=== PATIENT | male | born 1945 | race Two or more races ===

== ENCOUNTER 2023-09-20 08:28 | Emergency (ER) | payer MEDICARE, MEDICAID ==
[~2023-09-20] VITALS: Ht 175.3 cm; Wt 100.0 kg
[~2023-09-20 08:28] MED LIST: AMLO10TA80 PO; ATOR40TA70 PO; B1/B1TAB5 MT; CHLO25TA2 PO; FERR-63 PO; GABA-529 PO; INSU100I28 SUBCUT; METF-416 PO; OLAN10TA72 PO; POTA-204 PO; SULF1TAB44 PO
[2023-09-20 08:32] VITALS: O2SAT 96
[2023-09-20 10:36] VITALS: BP 161/73; PULSE 68; RESP 22; TEMP 98
[2023-09-20] MEDS: IBUPROFEN 400MG TABLET PO ONE (10:36)
[2023-09-20] MEDS: LIDOCAINE 5% PATCH TOP STA (10:36)
[2023-09-20] MEDS: ACETAMINOPHEN 325MG TABLET PO ONE (10:36)
[2023-09-20] MEDS ORDERED: IBUP-2028 MT (11:57)
[2023-09-20] MEDS ORDERED: LIDO1ADH23 TP (11:57)
== END 2023-09-20 12:57 ==
LOC: ER 08:28
DX: M16.0 Bilateral primary osteoarthritis of hip (principal); E11.9 Type 2 diabetes mellitus without complications; E78.00 Pure hypercholesterolemia, unspecified; I48.91 Unspecified atrial fibrillation; Z79.899 Other long term (current) drug therapy; Z86.59 Personal history of other mental and behavioral disorders; W18.30XA Fall on same level, unspecified, initial encounter; Y93.01 Activity, walking, marching and hiking; Y92.89 Other specified places as the place of occurrence of the external cause; Y99.8 Other external cause status
CPT/HCPCS: 72100; 73502; 99284

== ENCOUNTER 2023-10-26 14:10 | Inpatient (IN) | payer MEDICARE, MEDICAID ==
[~2023-10-26] VITALS: Ht 170.2 cm; Wt 79.4 kg
[~2023-10-26 14:10] MED LIST changes: +IBUP-2028 MT; +LIDO1ADH23 TP
[2023-10-26 14:42] LABS: BASOPHILS % 0.9 % (0.0-2.0); DIFFERENTIAL COMMENT 0; EOSINOPHILS % 5.9 % (0.0-5.0); HEMATOCRIT. 45.3 % (42.0-52.0); HEMOGLOBIN. 14.3 g/dL (14.0-18.0); LYMPHOCYTES % 27.1 % (20.0-50.0); MEAN CORPUSCULAR HEMOGLOBIN 27.6 pg (28.0-32.0); MEAN CORPUSCULAR HGB CONC 31.6 g/dL (31.0-37.0); MEAN CORPUSCULAR VOLUME 87.5 fL (80.0-94.0); MEAN PLATELET VOLUME 11.4 fl (7.4-10.4); MONOCYTES % 7.9 % (2.0-8.0); NEUTROPHILS % 58.2 % (40.0-76.0); PLATELET 166 x1000/uL (130-400); RED BLOOD CELL COUNT 5.18 mill/uL (4.7-6.1); RED CELL DISTRIBUTION WIDTH 16.6 % (11.6-14.6); WHITE BLOOD COUNT 14.1 x1000/uL (4.5-11.0)
[2023-10-26 14:48] LABS: CHLORIDE 105 mEq/L (98-107); POTASSIUM 4.3 mEq/L (3.5-5.1); SODIUM 138 mEq/L (136-145)
[2023-10-26 14:49] LABS: CALCIUM 9.3 mg/dL (8.7-10.4); CARBON DIOXIDE 27 mEq/L (21-32)
[2023-10-26 14:54] LABS: CREATININE 1.1 mg/dL (0.6-1.3); UREA NITROGEN BLOOD 24 mg/dL (9-23)
[2023-10-26] MEDS: IOHEXOL-350 100 ML BOTTLE ONE (15:01)
[2023-10-26 15:04] LABS: PROTHROMBIN TIME 11.2 sec (9.6-11.0)
[2023-10-26] MEDS: ASPIRIN 325MG EC TABLET PO ONE (15:19)
[2023-10-26 15:21] LABS: ETHANOL BLOOD < 10 mg/dL (<10); GLUCOSE 411 mg/dL (70-105)
[2023-10-26] MEDS: INSULIN REGULAR (HUMULIN R) 1000UNITS/10ML VIAL IV STA (15:47)
[2023-10-26] MEDS: SODIUM CHLORIDE 0.9% 1,000 ML IV ONE (15:47)
[2023-10-26] MEDS ORDERED: ACETAMINOPHEN 325MG TABLET PO PRN (20:30)
[2023-10-26] MEDS ORDERED: ONDANSETRON HCL 4MG/2ML INJ IV PRN (20:30)
[2023-10-26] MEDS ORDERED: DOCUSATE SODIUM 100MG CAPSULE PO PRN (20:30)
[2023-10-26] MEDS ORDERED: MAGNESIUM/ALUMINUM HYDROXIDE/SIMETHICONE 30ML UDC PO PRN (20:30)
[2023-10-26] MEDS ORDERED: DEXTROSE 50% WATER 50ML SYRINGE IV PRN ×2 (20:30)
[2023-10-26] MEDS ORDERED: HYDROCODONE/ACETAMINOPHEN 5/325MG TABLET PO PRN (20:30)
[2023-10-26] MEDS: BLOOD SUGAR DIAGNOSTIC STRIP TEST SCH (21:32)
[2023-10-26] MEDS: INSULIN LISPRO 100 UNITS/ML SUBCUT SCH (21:46)
[2023-10-26] MEDS: ENOXAPARIN 40MG/0.4ML SYR SUBCUT SCH (22:31)
[2023-10-26 23:18] VITALS: BP 186/83; PULSE 59; RESP 18; TEMP 36.44736; TEMP 36.4736; O2SAT 96
[2023-10-26] MEDS: CLONIDINE 0.1MG TABLET PO PRN (23:35)
[2023-10-27 05:21] VITALS: BP 132/78; PULSE 84; RESP 12; TEMP 36.83628; O2SAT 99
[2023-10-27 05:53] LABS: CARBON DIOXIDE 28 mEq/L (21-32); CHLORIDE 107 mEq/L (98-107); POTASSIUM 4.2 mEq/L (3.5-5.1); SODIUM 140 mEq/L (136-145)
[2023-10-27 05:54] LABS: CALCIUM 9.2 mg/dL (8.7-10.4)
[2023-10-27 05:55] LABS: BASOPHILS % 1.3 % (0.0-2.0); EOSINOPHILS % 10.5 % (0.0-5.0); HEMATOCRIT. 44.2 % (42.0-52.0); HEMOGLOBIN. 14.1 g/dL (14.0-18.0); LYMPHOCYTES % 32.3 % (20.0-50.0); MEAN CORPUSCULAR HGB CONC 31.8 g/dL (31.0-37.0); MEAN CORPUSCULAR VOLUME 87.9 fL (80.0-94.0); MEAN PLATELET VOLUME 11.7 fl (7.4-10.4); MONOCYTES % 8.8 % (2.0-8.0); NEUTROPHILS % 47.1 % (40.0-76.0); PLATELET 148 x1000/uL (130-400); RED BLOOD CELL COUNT 5.03 mill/uL (4.7-6.1); RED CELL DISTRIBUTION WIDTH 17.3 % (11.6-14.6); WHITE BLOOD COUNT 10.9 x1000/uL (4.5-11.0)
[2023-10-27 05:58] LABS: CREATININE 0.9 mg/dL (0.6-1.3)
[2023-10-27 05:59] LABS: GLUCOSE 342 mg/dL (70-105); TRIGLYCERIDE 117 mg/dL (0-150); UREA NITROGEN BLOOD 18 mg/dL (9-23)
[2023-10-27] MEDS: PANTOPRAZOLE 40MG DR TABLET PO SCH (05:59)
[2023-10-27 06:00] LABS: ALANINE AMINOTRANSFERASE 39 IU/L (10-49); ALBUMIN 3.7 g/dL (3.2-4.8); LDL CHOLESTEROL 63 mg/dL (5-100)
[2023-10-27 06:01] LABS: ASPARTATE AMINOTRANSFERASE 38 IU/L (<34); BILIRUBIN DIRECT 0.2 mg/dL (<=3.0); BILIRUBIN TOTAL 0.7 mg/dL (0.1-1.0); CHOLESTEROL 106 mg/dL (<200); HDL CHOLESTEROL 31 mg/dL (>55); PHOSPHORUS 2.8 mg/dL (2.5-4.9)
[2023-10-27 06:02] LABS: T4 FREE 0.85 ng/dL (0.89-1.76); THYROID STIMULATING HORMONE 2.24 uIU/mL (0.55-4.78)
[2023-10-27 06:21] LABS: DIFFERENTIAL COMMENT 1
[2023-10-27] MEDS ORDERED: OMEPRAZOLE 20MG CAPSULE EXTENDED RELEASE PO SCH (06:45)
[2023-10-27] MEDS ORDERED: ASPIRIN 81MG EC TABLET PO SCH (09:00)
[2023-10-27] MEDS ORDERED: NALOXONE HCL 0.4MG/ML VIAL IV PRN (10:30)
[2023-10-27] MEDS ORDERED: HYDRALAZINE HCL 25MG TABLET PO PRN (11:00)
[2023-10-27 11:02] VITALS: BP 145/86; PULSE 62; RESP 18; TEMP 36.6404
[2023-10-27 12:00] VITALS: BP 136/86; PULSE 76; RESP 18; TEMP 36.55848; O2SAT 96
[2023-10-27] MEDS: ASPIRIN 81MG EC TABLET PO SCH (12:19)
[2023-10-27 16:00] VITALS: BP 172/85; PULSE 61; RESP 18; TEMP 36.55848; O2SAT 98
[2023-10-27 20:00] VITALS: BP 158/75; PULSE 53; RESP 19; TEMP 35.89176; O2SAT 97
[2023-10-27] MEDS: ATORVASTATIN CALCIUM 40MG TABLET PO SCH (21:00)
[2023-10-28] VITALS: BP 153/71; PULSE 51; RESP 20; TEMP 36.78072; O2SAT 97
[2023-10-28 04:00] VITALS: BP 148/76; PULSE 61; RESP 18; TEMP 36.6696; O2SAT 97
[2023-10-28 08:00] VITALS: BP 175/75; PULSE 55; RESP 20; TEMP 36.3918; O2SAT 98
[2023-10-28 08:45] LABS: BASOPHILS % 1.5 % (0.0-2.0); EOSINOPHILS % 8.8 % (0.0-5.0); HEMATOCRIT. 46.2 % (42.0-52.0); HEMOGLOBIN. 14.7 g/dL (14.0-18.0); LYMPHOCYTES % 31.7 % (20.0-50.0); MEAN CORPUSCULAR HEMOGLOBIN 27.6 pg (28.0-32.0); MEAN CORPUSCULAR HGB CONC 31.7 g/dL (31.0-37.0); MEAN CORPUSCULAR VOLUME 87.1 fL (80.0-94.0); MONOCYTES % 8.3 % (2.0-8.0); NEUTROPHILS % 49.7 % (40.0-76.0); RED BLOOD CELL COUNT 5.31 mill/uL (4.7-6.1); RED CELL DISTRIBUTION WIDTH 17.1 % (11.6-14.6); WHITE BLOOD COUNT 12.7 x1000/uL (4.5-11.0)
[2023-10-28 08:54] LABS: CHLORIDE 104 mEq/L (98-107); POTASSIUM 3.7 mEq/L (3.5-5.1); SODIUM 137 mEq/L (136-145)
[2023-10-28 08:55] LABS: CALCIUM 9.6 mg/dL (8.7-10.4); CARBON DIOXIDE 30 mEq/L (21-32)
[2023-10-28 08:58] LABS: DIFFERENTIAL COMMENT 1
[2023-10-28 09:00] LABS: CREATININE 0.8 mg/dL (0.6-1.3); GLUCOSE 254 mg/dL (70-105); TRIGLYCERIDE 120 mg/dL (0-150); UREA NITROGEN BLOOD 14 mg/dL (9-23)
[2023-10-28 09:01] LABS: LDL CHOLESTEROL 63 mg/dL (5-100)
[2023-10-28 09:02] LABS: CHOLESTEROL 108 mg/dL (<200); HDL CHOLESTEROL 30 mg/dL (>55)
[2023-10-28] MEDS: CLOPIDOGREL 75MG TABLET PO SCH (09:22)
[2023-10-28 10:48] LABS: MEAN PLATELET VOLUME 11.6 fl (7.4-10.4); PLATELET 167 x1000/uL (130-400)
[2023-10-28 12:00] VITALS: BP 175/75; PULSE 55; RESP 20; TEMP 36.3918; O2SAT 98
[2023-10-28] MEDS: MAGNESIUM 2 G PREMIX 50 ML IV NR (12:40)
[2023-10-28 16:00] VITALS: BP 144/68; PULSE 68; RESP 18; TEMP 36.6696; O2SAT 99
[2023-10-28] MEDS: APIXABAN 5 MG TABLET PO SCH (17:30)
[2023-10-28 20:00] VITALS: PULSE 53; RESP 19; TEMP 36.61404; O2SAT 96
[2023-10-29 04:00] VITALS: BP 148/77; PULSE 53; RESP 20; TEMP 36.3918; O2SAT 97
[2023-10-29 07:17] LABS: CHLORIDE 103 mEq/L (98-107); POTASSIUM 3.9 mEq/L (3.5-5.1); SODIUM 140 mEq/L (136-145)
[2023-10-29 07:18] LABS: CALCIUM 9.3 mg/dL (8.7-10.4); CARBON DIOXIDE 29 mEq/L (21-32)
[2023-10-29 07:23] LABS: CREATININE 0.8 mg/dL (0.6-1.3); GLUCOSE 141 mg/dL (70-105); UREA NITROGEN BLOOD 16 mg/dL (9-23)
[2023-10-29 08:00] VITALS: BP 139/64; PULSE 69; RESP 18; TEMP 36.61404; O2SAT 98
[2023-10-29] MEDS: FAMOTIDINE 20MG TABLET PO SCH (08:09)
[2023-10-29 08:18] LABS: BASOPHILS % 1.5 % (0.0-2.0); DIFFERENTIAL COMMENT 0; EOSINOPHILS % 6.9 % (0.0-5.0); HEMATOCRIT. 44.5 % (42.0-52.0); HEMOGLOBIN. 14.3 g/dL (14.0-18.0); LYMPHOCYTES % 29.8 % (20.0-50.0); MEAN CORPUSCULAR HGB CONC 32.3 g/dL (31.0-37.0); MEAN CORPUSCULAR VOLUME 86.8 fL (80.0-94.0); MEAN PLATELET VOLUME 12.7 fl (7.4-10.4); MONOCYTES % 10.2 % (2.0-8.0); NEUTROPHILS % 51.6 % (40.0-76.0); PLATELET 154 x1000/uL (130-400); RED BLOOD CELL COUNT 5.12 mill/uL (4.7-6.1); RED CELL DISTRIBUTION WIDTH 16.7 % (11.6-14.6); WHITE BLOOD COUNT 13.3 x1000/uL (4.5-11.0)
[2023-10-29 12:00] VITALS: BP 143/71; PULSE 55; RESP 18; TEMP 36.72516; O2SAT 95
[2023-10-29 16:00] VITALS: BP 131/77; PULSE 60; RESP 18; TEMP 37.11408; O2SAT 99
[2023-10-29 20:00] VITALS: BP 136/75; PULSE 60; RESP 20; TEMP 36.6696; O2SAT 95
[2023-10-30] VITALS: BP 133/65; PULSE 58; RESP 20; TEMP 36.6696; O2SAT 95
[2023-10-30 04:00] VITALS: BP 132/65; PULSE 61; RESP 20; TEMP 36.6696; O2SAT 95
[2023-10-30 08:00] VITALS: BP 162/92; PULSE 75; RESP 18; TEMP 36.50292; O2SAT 95
[2023-10-30 09:58] VITALS: BP 162/91; PULSE 75; RESP 20; TEMP 36.50292; O2SAT 93
[2023-10-30 11:46] VITALS: BP 141/87; PULSE 72; TEMP 97.9; O2SAT 99
[2023-10-30] MEDS: HYDRALAZINE HCL 25MG TABLET PO NR (11:55)
[2023-10-30] MEDS ORDERED: AMLODIPINE 5MG TABLET PO SCH (21:00)
== END 2023-10-30 12:15 | DRG 64 ==
LOC: ER 14:10 → EDBEDREQ 15:07 → 5WST 19:26 → EDBEDREQ 19:29 → 8WST 10-27 10:24
PROVIDERS: ADMIT Family Medicine Adult Medicine; ATTEND Family Medicine Adult Medicine
DX: I63.531 Cerebral infarction due to unspecified occlusion or stenosis of right posterior cerebral artery (principal); G82.50 Quadriplegia, unspecified; I48.20 Chronic atrial fibrillation, unspecified; G40.909 Epilepsy, unspecified, not intractable, without status epilepticus; E83.42 Hypomagnesemia; D72.10 Eosinophilia, unspecified; D64.9 Anemia, unspecified; E11.65 Type 2 diabetes mellitus with hyperglycemia; E11.42 Type 2 diabetes mellitus with diabetic polyneuropathy; F20.9 Schizophrenia, unspecified; E78.00 Pure hypercholesterolemia, unspecified; F17.200 Nicotine dependence, unspecified, uncomplicated; R47.01 Aphasia; Z79.4 Long term (current) use of insulin
CPT/HCPCS: 36415; 70496; 70498; 70551; 71045; 80048; 80061; 80076; 80320; 82962; 83036; 83735; 84100; 84439; 84443; 85025; 92523; 92610; 93005; 93306; 93970; 97162; 97166; 97168; 99291; J1650; J1815; J3475; J7030; Q9967; G0480

== ENCOUNTER 2024-05-11 19:42 | Emergency (ER) | payer MEDICARE, MEDICAID ==
[~2024-05-11] VITALS: Ht 170.2 cm; Wt 75.0 kg
[2024-05-11 19:50] VITALS: O2SAT 96
[2024-05-11] MEDS: SODIUM CHLORIDE 0.9% 1,000 ML IV ONE (20:30)
[2024-05-11 20:53] LABS: EOSINOPHILS % 10.7 % (0.0-5.0); HEMATOCRIT. 42.1 % (42.0-52.0); HEMOGLOBIN. 13.8 g/dL (14.0-18.0); LYMPHOCYTES % 34.1 % (20.0-50.0); MEAN CORPUSCULAR HGB CONC 32.9 g/dL (31.0-37.0); NEUTROPHILS % 43.2 % (40.0-76.0); PLATELET 181 x1000/uL (130-400); RED BLOOD CELL COUNT 4.78 mill/uL (4.7-6.1); RED CELL DISTRIBUTION WIDTH 14.3 % (11.6-14.6)
[2024-05-11 20:55] LABS: DIFFERENTIAL COMMENT 1
[2024-05-11 21:00] LABS: CARBON DIOXIDE 30 mEq/L (21-32); CHLORIDE 105 mEq/L (98-107); SODIUM 143 mEq/L (136-145)
[2024-05-11 21:01] LABS: CALCIUM 9.8 mg/dL (8.7-10.4)
[2024-05-11 21:05] LABS: CREATININE 0.9 mg/dL (0.6-1.3)
[2024-05-11 21:06] LABS: GLUCOSE 90 mg/dL (70-105); TROPONIN I HIGH SENSITIVITY 18 ng/L (3.0-53); UREA NITROGEN BLOOD 18 mg/dL (9-23)
[2024-05-11 21:07] LABS: ALANINE AMINOTRANSFERASE 22 IU/L (10-49); ALBUMIN 4.1 g/dL (3.2-4.8); ASPARTATE AMINOTRANSFERASE 28 IU/L (<34)
[2024-05-11 21:08] LABS: BILIRUBIN DIRECT 0.1 mg/dL (<=3.0); BILIRUBIN TOTAL 0.3 mg/dL (0.1-1.0); PROTEIN TOTAL 6.4 g/dL (6.0-8.3)
[2024-05-11 22:13] LABS: PARTIAL THROMBOPLASTIN TIME 25.2 sec (23.4-31.0); PROTHROMBIN TIME 10.9 sec (9.6-11.0)
[2024-05-12 01:18] VITALS: BP 167/74; PULSE 58; RESP 18; TEMP 36.7; O2SAT 95
== END 2024-05-12 02:21 ==
LOC: ER 19:42
DX: T14.8XXA Other injury of unspecified body region, initial encounter (principal); E11.9 Type 2 diabetes mellitus without complications; E78.00 Pure hypercholesterolemia, unspecified; F20.9 Schizophrenia, unspecified; G40.909 Epilepsy, unspecified, not intractable, without status epilepticus; I48.91 Unspecified atrial fibrillation; I25.2 Old myocardial infarction; Z79.01 Long term (current) use of anticoagulants; Z79.899 Other long term (current) drug therapy; Z79.84 Long term (current) use of oral hypoglycemic drugs; Z86.73 Personal history of transient ischemic attack (TIA), and cerebral infarction without residual deficits; X58.XXXA Exposure to other specified factors, initial encounter; Y93.89 Activity, other specified; Y92.89 Other specified places as the place of occurrence of the external cause; Y99.8 Other external cause status
CPT/HCPCS: 99285; 71045; 80076; 80048; 83880; 85025; 85610; 85730; 84484; 36415; 93005; J7030

== ENCOUNTER 2025-02-06 16:31 | Inpatient (IN) | payer MEDICARE, MEDICAID ==
[~2025-02-06] VITALS: Ht 182.9 cm; Wt 64.0 kg
[~2025-02-06 16:31] MED LIST changes: +ASPI-1160 PO; -ATOR40TA70 PO; +FAMO20TA8 PO; +HYDR50TA39 PO; +INSLIS SUBCUT; +INSU100I28 SQ; -INSU100I28 SUBCUT; -LIDO1ADH23 TP; +LIP40 PO; +NICO-789 TD; -OLAN10TA72 PO; -SULF1TAB44 PO
[2025-02-06 16:34] VITALS: O2SAT 97
[2025-02-06] MEDS: HYDRALAZINE 20MG/ML VIAL IV ONE (18:01)
[2025-02-06 18:40] LABS: BASOPHILS % 0.6 % (0.0-2.0); EOSINOPHILS % 9.9 % (0.0-5.0); HEMATOCRIT. 41.3 % (42.0-52.0); HEMOGLOBIN. 13.4 g/dL (14.0-18.0); LYMPHOCYTES % 32.3 % (20.0-50.0); MONOCYTES % 9.1 % (2.0-8.0); NEUTROPHILS % 48.1 % (40.0-76.0); RED BLOOD CELL COUNT 4.78 mill/uL (4.7-6.1); RED CELL DISTRIBUTION WIDTH 16.1 % (11.6-14.6)
[2025-02-06 18:57] LABS: CREATININE 1.0 mg/dL (0.6-1.3)
[2025-02-06 18:58] LABS: UREA NITROGEN BLOOD 17 mg/dL (9-23)
[2025-02-06 18:59] LABS: ASPARTATE AMINOTRANSFERASE 25 IU/L (<34); TROPONIN I HIGH SENSITIVITY 30 ng/L (3.0-53)
[2025-02-06 19:00] LABS: BILIRUBIN DIRECT 0.1 mg/dL (<=3.0); BILIRUBIN TOTAL 0.3 mg/dL (0.1-1.0); PROTEIN TOTAL 6.4 g/dL (6.0-8.3)
[2025-02-06] MEDS: HYDROCODONE/ACETAMINOPHEN 5/325MG TABLET PO ONE (19:13)
[2025-02-06] MEDS: LABETALOL 5MG/ML 4ML INJ IV ONE (21:10)
[2025-02-06 21:32] LABS: MEAN PLATELET VOLUME 11.3 fl (7.4-10.4); PLATELET 166 x1000/uL (130-400)
[2025-02-07] MEDS: LABETALOL 5MG/ML 4ML INJ IV ONE (00:57)
[2025-02-07] MEDS: HYDRALAZINE 20MG/ML VIAL IV ONE (00:57)
[2025-02-07] MEDS ORDERED: GUAIFENESIN 200MG/10ML SUGAR FREE UDC PO PRN (01:30)
[2025-02-07] MEDS ORDERED: ASPIRIN 81MG TABLET PO NR (01:30)
[2025-02-07] MEDS ORDERED: DOCUSATE SODIUM 100MG CAPSULE PO PRN (01:30)
[2025-02-07] MEDS ORDERED: MAGNESIUM/ALUMINUM HYDROXIDE/SIMETHICONE 30ML UDC PO PRN (01:30)
[2025-02-07] MEDS ORDERED: DEXTROSE 50% WATER 50ML SYRINGE IV PRN ×2 (01:30→10:30)
[2025-02-07] MEDS ORDERED: IPRATROPIUM/ALBUTEROL 0.5-3(2.5)MG/3ML NEB HHN PRN (01:30)
[2025-02-07] MEDS ORDERED: ONDANSETRON HCL 4MG/2ML INJ IV PRN (01:30)
[2025-02-07 02:14] VITALS: BP 165/80; PULSE 62; RESP 18; TEMP 36.696
[2025-02-07] MEDS: CLONIDINE 0.1MG TABLET PO PRN (03:03)
[2025-02-07] MEDS: HYDROCODONE/ACETAMINOPHEN 5/325MG TABLET PO NR (03:03)
[2025-02-07] MEDS: DEXT 5%/0.9% NACL 1,000 ML IV SCH (03:15)
[2025-02-07] MEDS ORDERED: ENOXAPARIN 80MG/0.8ML SYR SUBCUT SCH (03:30)
[2025-02-07] MEDS: GABAPENTIN 100MG CAPSULE PO SCH (05:08)
[2025-02-07] MEDS: CLONIDINE 0.1MG TABLET PO SCH (05:09)
[2025-02-07] MEDS ORDERED: GABAPENTIN 100MG CAPSULE PO SCH (06:00)
[2025-02-07] MEDS ORDERED: HYDRALAZINE HCL 50MG TABLET PO SCH (06:00)
[2025-02-07] MEDS ORDERED: INSULIN LISPRO 100 UNITS/ML SUBCUT SCH (07:20)
[2025-02-07] MEDS: INSULIN LISPRO 100 UNITS/ML SUBCUT SCH ×3 (07:20→12:50)
[2025-02-07] MEDS: BLOOD SUGAR DIAGNOSTIC STRIP TEST SCH ×2 (07:39→12:20)
[2025-02-07 08:00] VITALS: BP 175/79; PULSE 58; RESP 13; TEMP 36.6; O2SAT 94
[2025-02-07] MEDS ORDERED: AMLODIPINE 10MG TABLET PO SCH (09:00)
[2025-02-07] MEDS ORDERED: APIXABAN 5 MG TABLET PO SCH (09:00)
[2025-02-07] MEDS ORDERED: NICOTINE 21MG PATCH TD SCH (09:00)
[2025-02-07] MEDS ORDERED: CHLORTHALIDONE 25MG TABLET PO SCH (09:00)
[2025-02-07] MEDS: APIXABAN 5 MG TABLET PO SCH (09:30)
[2025-02-07] MEDS: AMLODIPINE 10MG TABLET PO SCH (09:31)
[2025-02-07] MEDS: FERROUS SULFATE 325MG TABLET PO SCH (09:32)
[2025-02-07 16:00] VITALS: BP 168/81; PULSE 54; RESP 14; TEMP 36.5; O2SAT 95
[2025-02-07] MEDS: HYDROCODONE/ACETAMINOPHEN 5/325MG TABLET PO PRN (16:21)
[2025-02-07] MEDS: HYDRALAZINE HCL 50MG TABLET PO PRN (16:25)
[2025-02-07 17:16] LABS: BASOPHILS % 1.2 % (0.0-2.0); EOSINOPHILS % 7.7 % (0.0-5.0); HEMATOCRIT. 45.6 % (42.0-52.0); HEMOGLOBIN. 14.6 g/dL (14.0-18.0); LYMPHOCYTES % 27.0 % (20.0-50.0); MEAN PLATELET VOLUME 12.7 fl (7.4-10.4); MONOCYTES % 8.2 % (2.0-8.0); NEUTROPHILS % 55.9 % (40.0-76.0); PLATELET 188 x1000/uL (130-400); RED BLOOD CELL COUNT 5.26 mill/uL (4.7-6.1); RED CELL DISTRIBUTION WIDTH 16.4 % (11.6-14.6)
[2025-02-07 17:28] LABS: INR 1.1
[2025-02-07] MEDS: LOSARTAN 100 MG TABLET PO SCH (17:29)
[2025-02-07 17:31] LABS: CREATININE 0.9 mg/dL (0.6-1.3)
[2025-02-07 17:32] LABS: LDL CHOLESTEROL 117 mg/dL (5-100); TRIGLYCERIDE 126 mg/dL (0-150); UREA NITROGEN BLOOD 8 mg/dL (9-23)
[2025-02-07 20:00] VITALS: BP 171/72; PULSE 50; RESP 18; TEMP 36.3; O2SAT 98
[2025-02-07] MEDS ORDERED: ATORVASTATIN CALCIUM 40MG TABLET PO SCH (21:00)
[2025-02-07] MEDS ORDERED: INSULIN GLARGINE 100 UNITS/ML SUBCUT SCH ×2 (22:00)
[2025-02-07] MEDS: ATORVASTATIN CALCIUM 40MG TABLET PO SCH (22:04)
[2025-02-07] MEDS: FAMOTIDINE 20MG TABLET PO SCH (22:07)
[2025-02-08] VITALS: BP 122/59; PULSE 50; RESP 18; TEMP 36.4; O2SAT 98
[2025-02-08 04:00] VITALS: BP 144/61; PULSE 50; RESP 18; TEMP 36.3; O2SAT 98
[2025-02-08 08:00] VITALS: BP 162/88; PULSE 55; RESP 18; TEMP 36.6; O2SAT 96
[2025-02-08 08:27] LABS: CREATININE 0.8 mg/dL (0.6-1.3); UREA NITROGEN BLOOD 14 mg/dL (9-23)
[2025-02-08 08:45] LABS: BASOPHILS % 1.2 % (0.0-2.0); EOSINOPHILS % 9.9 % (0.0-5.0); HEMATOCRIT. 43.3 % (42.0-52.0); HEMOGLOBIN. 13.6 g/dL (14.0-18.0); LYMPHOCYTES % 27.5 % (20.0-50.0); MONOCYTES % 10.7 % (2.0-8.0); NEUTROPHILS % 50.7 % (40.0-76.0); RED BLOOD CELL COUNT 4.96 mill/uL (4.7-6.1); RED CELL DISTRIBUTION WIDTH 16.0 % (11.6-14.6)
[2025-02-08 11:38] LABS: PLATELET 198 x1000/uL (130-400)
[2025-02-08 12:00] VITALS: BP 140/66; PULSE 47; RESP 13; TEMP 36.3; O2SAT 94
[2025-02-08 16:00] VITALS: BP 141/87; PULSE 52; RESP 15; TEMP 36.4; O2SAT 95
[2025-02-08 20:00] VITALS: BP 163/72; PULSE 52; RESP 19; TEMP 36.2; O2SAT 98
[2025-02-08] MEDS: ATORVASTATIN CALCIUM 40MG TABLET PO SCH (21:57)
[2025-02-09] VITALS: BP 181/76; PULSE 48; RESP 19; TEMP 36.4; O2SAT 98
[2025-02-09 07:42] LABS: CREATININE 0.8 mg/dL (0.6-1.3); TRIGLYCERIDE 97 mg/dL (0-150); UREA NITROGEN BLOOD 9 mg/dL (9-23)
[2025-02-09 07:43] LABS: LDL CHOLESTEROL 70 mg/dL (5-100)
[2025-02-09 07:47] LABS: BASOPHILS % 1.0 % (0.0-2.0); EOSINOPHILS % 11.4 % (0.0-5.0); HEMATOCRIT. 44.3 % (42.0-52.0); HEMOGLOBIN. 14.1 g/dL (14.0-18.0); LYMPHOCYTES % 31.1 % (20.0-50.0); MONOCYTES % 10.7 % (2.0-8.0); NEUTROPHILS % 45.8 % (40.0-76.0); RED BLOOD CELL COUNT 5.10 mill/uL (4.7-6.1); RED CELL DISTRIBUTION WIDTH 16.1 % (11.6-14.6)
[2025-02-09 08:00] VITALS: BP 205/81; PULSE 54; RESP 18; TEMP 36.5; O2SAT 95
[2025-02-09 10:14] LABS: PLATELET 162 x1000/uL (130-400)
[2025-02-09 12:00] VITALS: BP 170/71; PULSE 57; RESP 18; TEMP 36.3; O2SAT 99
[2025-02-09] MEDS: HYDRALAZINE 20MG/ML VIAL IV PRN (12:26)
[2025-02-09] MEDS ORDERED: NALOXONE HCL 0.4MG/ML VIAL IV PRN (15:00)
[2025-02-09 16:00] VITALS: BP 183/74; PULSE 62; TEMP 36.3; O2SAT 95
[2025-02-09 20:00] VITALS: BP 113/78; PULSE 57; RESP 19; TEMP 36.5; O2SAT 96
[2025-02-10 04:00] VITALS: BP 195/83; PULSE 65; RESP 19; TEMP 36.6; O2SAT 97
[2025-02-10 05:05] VITALS: BP 153/76
[2025-02-10 08:00] VITALS: BP 155/59; PULSE 78; RESP 18; TEMP 36.6; O2SAT 97
[2025-02-10] MEDS: AMLODIPINE 5MG TABLET PO SCH (09:12)
[2025-02-10 12:00] VITALS: BP 152/60; PULSE 73; RESP 18; TEMP 36.7; O2SAT 98
[2025-02-10 16:00] VITALS: BP 157/56; PULSE 76; RESP 18; TEMP 36.6; O2SAT 98
[2025-02-10 20:24] VITALS: BP 200/71; PULSE 60; RESP 21; TEMP 36.5; O2SAT 98
[2025-02-11] VITALS: BP 135/82; PULSE 61; RESP 18; TEMP 36.4; O2SAT 97
[2025-02-11 04:00] VITALS: BP 195/79; PULSE 61; RESP 18; TEMP 36.6; O2SAT 98
[2025-02-11 08:29] VITALS: BP 181/72; PULSE 75; RESP 16; TEMP 36.2; O2SAT 97
[2025-02-11] MEDS: CLONIDINE HCL 0.1MG/24HR PATCH TD SCH (08:33)
[2025-02-11] MEDS: HYDROMORPHONE HCL/PF 2MG/ML INJ IV PRN (08:44)
[2025-02-11 12:00] VITALS: BP 187/81; PULSE 78; RESP 17; TEMP 36.6; O2SAT 96
[2025-02-11 13:26] LABS: BASOPHILS % 1.3 % (0.0-2.0); EOSINOPHILS % 1.5 % (0.0-5.0); HEMATOCRIT. 45.8 % (42.0-52.0); HEMOGLOBIN. 14.7 g/dL (14.0-18.0); LYMPHOCYTES % 16.6 % (20.0-50.0); MONOCYTES % 8.7 % (2.0-8.0); NEUTROPHILS % 71.9 % (40.0-76.0); RED BLOOD CELL COUNT 5.31 mill/uL (4.7-6.1); RED CELL DISTRIBUTION WIDTH 16.4 % (11.6-14.6)
[2025-02-11 13:37] LABS: CREATININE 0.8 mg/dL (0.6-1.3); UREA NITROGEN BLOOD 8 mg/dL (9-23)
[2025-02-11 15:30] LABS: MEAN PLATELET VOLUME 13.6 fl (7.4-10.4); PLATELET 153 x1000/uL (130-400)
[2025-02-11 16:00] VITALS: BP 181/72; PULSE 75; RESP 16; TEMP 36.2; O2SAT 97
[2025-02-12] VITALS: BP 172/70; PULSE 17; RESP 17; TEMP 36.7; O2SAT 60
[2025-02-12 04:00] VITALS: BP 135/69; PULSE 68; RESP 18; TEMP 36.7; O2SAT 96
[2025-02-12 08:00] VITALS: BP 147/69; PULSE 70; RESP 19; TEMP 36.2; O2SAT 97
[2025-02-12 12:00] VITALS: PULSE 64; RESP 18; TEMP 36.2; O2SAT 98
[2025-02-12] MEDS: MAGNESIUM 1 G PREMIX 100 ML IV ONE (15:06)
[2025-02-12 16:00] VITALS: BP 147/69; PULSE 70; RESP 19; TEMP 36.2; O2SAT 97
[2025-02-12 20:00] VITALS: BP 176/78; PULSE 69; RESP 19; TEMP 36.5; O2SAT 97
[2025-02-13] VITALS (7 sets, daily range): BP systolic 121–199; BP diastolic 64–84; PULSE 59–86; RESP 16–19; TEMP 35.9–36.9; O2SAT 91–98
[2025-02-13] MEDS: POTASSIUM CHLORIDE 20MEQ/PACKET PO NR (10:15)
[2025-02-13] MEDS: MAGNESIUM 1 G PREMIX 100 ML IV NR (13:24)
[2025-02-14] VITALS (8 sets, daily range): BP systolic 121–199; BP diastolic 67–87; PULSE 61–66; RESP 18–19; TEMP 36.1–37.2; O2SAT 96–100
[2025-02-14] MEDS: CLONIDINE 0.1MG TABLET PO SCH (17:38)
[2025-02-14 17:42] LABS: HEMATOCRIT. 44.7 % (42.0-52.0); HEMATOCRIT. 45.1 % (42.0-52.0); HEMOGLOBIN. 14.5 g/dL (14.0-18.0); HEMOGLOBIN. 14.6 g/dL (14.0-18.0); MEAN PLATELET VOLUME 13.4 fl (7.4-10.4); MEAN PLATELET VOLUME 14.1 fl (7.4-10.4); PLATELET 153 x1000/uL (130-400); PLATELET 154 x1000/uL (130-400); RED BLOOD CELL COUNT 5.21 mill/uL (4.7-6.1); RED BLOOD CELL COUNT 5.28 mill/uL (4.7-6.1); RED CELL DISTRIBUTION WIDTH 16.7 % (11.6-14.6); RED CELL DISTRIBUTION WIDTH 16.8 % (11.6-14.6)
[2025-02-14 17:57] LABS: INR 1.0
[2025-02-14 18:00] LABS: CREATININE 0.8 mg/dL (0.6-1.3)
[2025-02-14 18:01] LABS: UREA NITROGEN BLOOD 18 mg/dL (9-23)
[2025-02-14 18:03] LABS: CREATININE 0.8 mg/dL (0.6-1.3); PHOSPHORUS 2.0 mg/dL (2.5-4.9); UREA NITROGEN BLOOD 17 mg/dL (9-23)
[2025-02-14 18:16] LABS: LYMPHOCYTES % MANUAL 28.0 % (20.0-50.0); MONOCYTES % MANUAL 14.0 % (2.0-8.0); NEUTROPHILS % MANUAL 58.0 % (45.0-75.0); PLATELET ESTIMATE NORMAL
[2025-02-14 18:17] LABS: EOSINOPHILS % MANUAL 2.0 % (0.0-5.0); LYMPHOCYTES % MANUAL 24.0 % (20.0-50.0); MONOCYTES % MANUAL 14.0 % (2.0-8.0); NEUTROPHILS % MANUAL 60.0 % (45.0-75.0); PLATELET ESTIMATE NORMAL
[2025-02-15] VITALS (7 sets, daily range): BP systolic 155–192; BP diastolic 68–95; PULSE 53–70; RESP 18–19; TEMP 36.2–36.7; O2SAT 97–100
[2025-02-15] MEDS: POTASSIUM CHLORIDE 20MEQ TABLET SR PO NR (01:30)
[2025-02-15] MEDS: DEXTROSE 5% WATER 1,000 ML IV SCH (08:30)
[2025-02-15] MEDS ORDERED: AMLODIPINE 10MG TABLET PO SCH (09:00)
[2025-02-15] MEDS: HYDRALAZINE HCL 50MG TABLET PO SCH ×2 (10:29→13:00)
[2025-02-15] MEDS: POTASSIUM PHOSPHATE 15 MMOL in DEXT 5% WATER 245 ML IV NR (10:54)
[2025-02-15] MEDS: POTASSIUM CHLORIDE 20MEQ/PACKET PO NR ×2 (11:00→16:00)
[2025-02-15 16:05] LABS: CREATININE 0.8 mg/dL (0.6-1.3); UREA NITROGEN BLOOD 7 mg/dL (9-23)
[2025-02-15] MEDS ORDERED: HALOPERIDOL 0.5MG TABLET PO NR (18:50)
[2025-02-16] VITALS (7 sets, daily range): BP systolic 144–180; BP diastolic 58–114; PULSE 52–108; RESP 15–19; TEMP 35.7–36.8; O2SAT 95–96
[2025-02-16 08:37] LABS: CREATININE 0.7 mg/dL (0.6-1.3); UREA NITROGEN BLOOD 6 mg/dL (9-23)
[2025-02-16 08:40] LABS: PHOSPHORUS 2.0 mg/dL (2.5-4.9)
[2025-02-16] MEDS: KCL 20MEQ/100ML PREMIX 100 ML IV NR (09:56)
[2025-02-16 11:20] LABS: BASOPHILS % 1.2 % (0.0-2.0); EOSINOPHILS % 2.8 % (0.0-5.0); HEMATOCRIT. 45.5 % (42.0-52.0); HEMOGLOBIN. 14.5 g/dL (14.0-18.0); LYMPHOCYTES % 35.3 % (20.0-50.0); MONOCYTES % 12.5 % (2.0-8.0); NEUTROPHILS % 48.2 % (40.0-76.0); RED BLOOD CELL COUNT 5.35 mill/uL (4.7-6.1); RED CELL DISTRIBUTION WIDTH 16.4 % (11.6-14.6)
[2025-02-16 11:28] LABS: INR 1.1
[2025-02-16 12:40] LABS: PLATELET 141 x1000/uL (130-400)
[2025-02-16] MEDS ORDERED: ACETAMINOPHEN 1,000MG/100ML PREMIX IV PRN (13:30)
[2025-02-16] MEDS ORDERED: FAMOTIDINE 20MG/2ML VIAL IV PRN (13:30)
[2025-02-16] MEDS ORDERED: LABETALOL 5MG/ML 4ML INJ IV PRN (13:30)
[2025-02-16] MEDS ORDERED: HYDROMORPHONE HCL/PF 1MG/ML INJ IV PRN (13:30)
[2025-02-16] MEDS ORDERED: ONDANSETRON HCL 4MG/2ML INJ IV PRN (13:30)
[2025-02-16] MEDS ORDERED: CEFAZOLIN 1000MG PREMIX 50 ML IV PRN (13:30)
[2025-02-16] MEDS ORDERED: MEPERIDINE HCL/PF 25MG/ML CPJ IV PRN (13:30)
[2025-02-16] MEDS ORDERED: PROPOFOL 200MG/20ML VIAL IV ONE ×2 (14:18→14:58)
[2025-02-16] MEDS ORDERED: ROCURONIUM BROMIDE 10MG/ML VIAL 5ML IV ONE (14:57)
[2025-02-16] MEDS: HYDRALAZINE 20MG/ML VIAL IV PRN ×2 (15:21→15:56)
[2025-02-17] VITALS: BP 150/83; PULSE 67; RESP 19; TEMP 36.5; O2SAT 98
[2025-02-17 04:00] VITALS: BP 157/109; PULSE 71; RESP 18; TEMP 36.1; O2SAT 94
[2025-02-17 08:00] VITALS: BP 119/80; PULSE 76; RESP 16; TEMP 36.1; O2SAT 96
[2025-02-17 12:00] VITALS: BP 126/66; PULSE 78; RESP 17; TEMP 36; O2SAT 97
[2025-02-17] MEDS: HYDRALAZINE HCL 100MG TABLET PO SCH (14:15)
[2025-02-17 16:00] VITALS: BP 136/92; PULSE 82; RESP 17; TEMP 36; O2SAT 99
[2025-02-17 20:00] VITALS: BP 135/91; PULSE 67; RESP 19; TEMP 36.4; O2SAT 95
[2025-02-18] VITALS (7 sets, daily range): BP systolic 114–147; BP diastolic 56–89; PULSE 47–80; RESP 18–19; TEMP 36.4–36.9; O2SAT 94–98
[2025-02-18] MEDS: ACETAMINOPHEN 325MG TABLET PO PRN (21:08)
[2025-02-19] VITALS: BP 133/66; PULSE 62; RESP 18; TEMP 36.6; O2SAT 98
[2025-02-19 04:00] VITALS: BP 165/74; PULSE 49; RESP 18; TEMP 36.4; O2SAT 98
[2025-02-19 08:00] VITALS: BP 149/73; PULSE 54; RESP 19; TEMP 36.7; O2SAT 97
[2025-02-19 12:00] VITALS: BP 135/88; PULSE 72; RESP 16; TEMP 36.3; O2SAT 95
[2025-02-19 12:01] LABS: CREATININE 0.8 mg/dL (0.6-1.3)
[2025-02-19 12:02] LABS: UREA NITROGEN BLOOD 14 mg/dL (9-23)
[2025-02-19 16:00] VITALS: BP 132/84; PULSE 72; RESP 19; TEMP 36.6; O2SAT 96
[2025-02-19 17:52] LABS: BASOPHILS % 1.2 % (0.0-2.0); EOSINOPHILS % 3.7 % (0.0-5.0); HEMATOCRIT. 44.4 % (42.0-52.0); HEMOGLOBIN. 14.2 g/dL (14.0-18.0); LYMPHOCYTES % 23.5 % (20.0-50.0); MEAN PLATELET VOLUME 13.4 fl (7.4-10.4); MONOCYTES % 14.1 % (2.0-8.0); NEUTROPHILS % 57.5 % (40.0-76.0); PLATELET 140 x1000/uL (130-400); RED BLOOD CELL COUNT 5.18 mill/uL (4.7-6.1); RED CELL DISTRIBUTION WIDTH 16.2 % (11.6-14.6)
[2025-02-19 20:00] VITALS: BP 142/72; PULSE 64; RESP 18; TEMP 36.7; O2SAT 97
[2025-02-20] VITALS: BP 142/71; PULSE 65; RESP 19; TEMP 36.6; O2SAT 98
[2025-02-20 04:00] VITALS: BP 149/72; PULSE 62; RESP 18; TEMP 36.4; O2SAT 99
[2025-02-20 08:00] VITALS: BP 152/74; PULSE 64; RESP 15; TEMP 36.4; O2SAT 97
[2025-02-20] MEDS: POTASSIUM CHLORIDE 20MEQ/PACKET PO SCH ×3 (10:15→18:20)
[2025-02-20 12:00] VITALS: BP 152/65; PULSE 62; RESP 18; TEMP 36.6; O2SAT 97
[2025-02-20] MEDS ORDERED: POTASSIUM CHLORIDE 20MEQ/PACKET PO SCH (15:00)
[2025-02-20 16:00] VITALS: BP 155/70; PULSE 66; RESP 16; TEMP 36.8; O2SAT 95
[2025-02-20 20:00] VITALS: BP 159/63; PULSE 74; RESP 19; TEMP 36.7; O2SAT 96
[2025-02-21] VITALS: BP 143/79; PULSE 64; RESP 19; TEMP 36.6; O2SAT 97
[2025-02-21 04:00] VITALS: BP 130/68; PULSE 62; RESP 18; TEMP 36.9; O2SAT 98
[2025-02-21 08:00] VITALS: BP 169/73; PULSE 63; RESP 18; TEMP 36.7; O2SAT 98
[2025-02-21 12:00] VITALS: BP 155/68; PULSE 62; RESP 18; TEMP 36.7; O2SAT 98
[2025-02-21 16:00] VITALS: BP 117/57; PULSE 55; RESP 16; TEMP 36.4; O2SAT 97
[2025-02-21 20:00] VITALS: BP 138/61; PULSE 63; RESP 19; TEMP 36.6; O2SAT 98
[2025-02-22] VITALS: BP 119/54; PULSE 61; RESP 19; TEMP 36.7; O2SAT 97
[2025-02-22 04:00] VITALS: BP 134/74; PULSE 64; RESP 19; TEMP 36.6; O2SAT 98
[2025-02-22 08:00] VITALS: BP 140/71; PULSE 56; RESP 18; TEMP 36.3; O2SAT 97
[2025-02-22 08:15] LABS: RED BLOOD CELL COUNT 5.34 mill/uL (4.7-6.1); RED CELL DISTRIBUTION WIDTH 16.1 % (11.6-14.6)
[2025-02-22 08:21] LABS: CREATININE 0.7 mg/dL (0.6-1.3); UREA NITROGEN BLOOD 10 mg/dL (9-23)
[2025-02-22] MEDS ORDERED: LIDOCAINE HCL 1% 10 MG/ML 10ML VIAL ONE (08:32)
[2025-02-22] MEDS ORDERED: BUPIVACAINE HCL/PF 0.5% (5MG/ML) 10ML ONE (08:32)
[2025-02-22 10:44] LABS: PLATELET 152 x1000/uL (130-400)
[2025-02-22 12:00] VITALS: BP 166/78; PULSE 59; RESP 18; TEMP 36.2; O2SAT 98
[2025-02-22 16:00] VITALS: BP 160/76; PULSE 60; RESP 18; TEMP 36.6; O2SAT 98
[2025-02-22 20:00] VITALS: BP 120/86; PULSE 78; RESP 19; TEMP 36.9; O2SAT 98
[2025-02-23] VITALS: BP 174/87; PULSE 59; RESP 18; TEMP 36.5; O2SAT 97
[2025-02-23 04:00] VITALS: BP 132/62; PULSE 53; RESP 18; TEMP 36.6; O2SAT 98
[2025-02-23 08:00] VITALS: BP 122/71; PULSE 55; RESP 16; TEMP 35.6; O2SAT 96
[2025-02-23] MEDS ORDERED: LIDOCAINE HCL 1% 10 MG/ML 10ML VIAL ONE (08:45)
[2025-02-23] MEDS: MAGNESIUM 2 G PREMIX 50 ML IV SCH (11:34)
[2025-02-23 12:00] VITALS: BP 94/63; PULSE 59; RESP 16; TEMP 35.9; O2SAT 96
[2025-02-23 16:00] VITALS: BP 175/82; PULSE 71; RESP 17; TEMP 36.1; O2SAT 96
[2025-02-23 20:00] VITALS: BP 131/74; PULSE 72; RESP 18; TEMP 36.2; O2SAT 98
[2025-02-24] VITALS: BP 151/76; PULSE 72; RESP 18; TEMP 36.2; O2SAT 98
[2025-02-24 04:00] VITALS: BP 130/73; PULSE 67; RESP 18; TEMP 36.7; O2SAT 100
[2025-02-24] MEDS ORDERED: LIDOCAINE HCL 1% 10 MG/ML 10ML VIAL ONE (06:37)
[2025-02-24] MEDS ORDERED: BUPIVACAINE HCL/PF 0.5% (5MG/ML) 10ML ONE (06:37)
[2025-02-24 08:00] VITALS: BP 107/76; PULSE 68; RESP 16; TEMP 36; O2SAT 96
[2025-02-24] MEDS ORDERED: EPHEDRINE SULFATE 50MG/ML VIAL ONE (10:48)
[2025-02-24 12:00] VITALS: BP 115/74; PULSE 61; RESP 16; TEMP 35.8; O2SAT 96
[2025-02-24] MEDS ORDERED: PROPOFOL 200MG/20ML VIAL IV ONE (12:36)
[2025-02-24] MEDS ORDERED: MIDAZOLAM HCL 5 MG/5 ML VIAL ONE (13:07)
[2025-02-24] MEDS ORDERED: FENTANYL CITRATE/PF 50MCG/ML 2ML VIAL ONE ×2 (13:07→14:25)
[2025-02-24] MEDS ORDERED: ROCURONIUM BROMIDE 10MG/ML VIAL 5ML IV ONE (13:29)
[2025-02-24] MEDS ORDERED: ACETAMINOPHEN 1000MG/100ML 100 ML IV ONE (13:51)
[2025-02-24] MEDS ORDERED: NEOSTIGMINE METHYLSULFATE 1MG/ML 10 ML VIAL ONE (13:58)
[2025-02-24] MEDS ORDERED: GLYCOPYRROLATE 0.2 MG/ML 2ML VIAL ONE ×2 (13:58)
[2025-02-24] MEDS ORDERED: HYDROMORPHONE HCL/PF 1MG/ML INJ IV PRN ×2 (14:00→15:45)
[2025-02-24] MEDS ORDERED: ONDANSETRON HCL 4MG/2ML INJ IV PRN (14:00)
[2025-02-24 16:00] VITALS: BP_SYST 133; BP_SYST 138; BP_DIAS 66; BP_DIAS 67; PULSE 67; PULSE 69; RESP 17; TEMP 35.8; TEMP 36.3; O2SAT 96; O2SAT 98
[2025-02-24] MEDS: FENTANYL CITRATE/PF 50MCG/ML 2ML VIAL IV PRN (16:02)
[2025-02-24 20:00] VITALS: BP 150/73; PULSE 72; RESP 18; TEMP 36.4; O2SAT 98
[2025-02-24] MEDS: GABAPENTIN SOLN 300MG/6ML UDC GT SCH (21:00)
[2025-02-24] MEDS: MORPHINE SULFATE 2 MG/ML INJ (NOT FOR IM USE) IV PRN (21:19)
[2025-02-24] MEDS: HYDROMORPHONE HCL/PF 2MG/ML INJ IV PRN (23:36)
[2025-02-25] VITALS: BP 167/76; PULSE 83; RESP 18; TEMP 36.8; O2SAT 96
[2025-02-25 04:00] VITALS: BP 164/83; PULSE 89; RESP 18; TEMP 36.2; O2SAT 96
[2025-02-25 08:00] VITALS: BP 170/94; PULSE 90; RESP 13; TEMP 37.9; O2SAT 95
[2025-02-25] MEDS: ACETAMINOPHEN 325MG TABLET PO PRN (09:11)
[2025-02-25] MEDS ORDERED: APIX5TAB MT (10:25)
[2025-02-25] MEDS ORDERED: ATOR-388 MT (10:25)
[2025-02-25 12:00] VITALS: BP 134/61; PULSE 82; RESP 13; RESP 16; TEMP 36.9; O2SAT 94; O2SAT 96
[2025-02-25 14:15] VITALS: BP 134/61; PULSE 82; RESP 16; TEMP 98.5
[2025-02-25 16:00] VITALS: BP 178/112; PULSE 89; RESP 14; TEMP 37; O2SAT 95
== END 2025-02-25 18:15 | DRG 64 ==
LOC: ER 16:31 → EDBEDREQ 23:39 → EDBEDREQTM 23:39 → ENRESERV 02-07 00:17 → 6WST 02-07 02:13
PROVIDERS: ADMIT Hospitalist; ATTEND Hospitalist
PROC: 0DJ08ZZ Inspection of Upper Intestinal Tract, Via Natural or Artificial Opening Endoscopic (ICD-10-PCS; principal; 2025-02-20)
PROC: 02HV33Z Insertion of Infusion Device into Superior Vena Cava, Percutaneous Approach (ICD-10-PCS; 2025-02-23)
PROC: B548ZZA Ultrasonography of Superior Vena Cava, Guidance (ICD-10-PCS; 2025-02-23)
PROC: 0DHA0UZ Insertion of Feeding Device into Jejunum, Open Approach (ICD-10-PCS; 2025-02-24)
DX: I63.9 Cerebral infarction, unspecified (principal); G82.50 Quadriplegia, unspecified; G93.40 Encephalopathy, unspecified; F20.0 Paranoid schizophrenia; I50.30 Unspecified diastolic (congestive) heart failure; M48.56XA Collapsed vertebra, not elsewhere classified, lumbar region, initial encounter for fracture; I16.0 Hypertensive urgency; R13.12 Dysphagia, oropharyngeal phase; I48.20 Chronic atrial fibrillation, unspecified; R47.01 Aphasia; Z79.01 Long term (current) use of anticoagulants; D64.9 Anemia, unspecified; E11.40 Type 2 diabetes mellitus with diabetic neuropathy, unspecified; J43.9 Emphysema, unspecified; G40.909 Epilepsy, unspecified, not intractable, without status epilepticus; I11.0 Hypertensive heart disease with heart failure; F03.90 Unspecified dementia, unspecified severity, without behavioral disturbance, psychotic disturbance, mood disturbance, and anxiety; I69.391 Dysphagia following cerebral infarction; I08.0 Rheumatic disorders of both mitral and aortic valves; G81.94 Hemiplegia, unspecified affecting left nondominant side; M85.80 Other specified disorders of bone density and structure, unspecified site; R47.1 Dysarthria and anarthria; E83.42 Hypomagnesemia; S40.012A Contusion of left shoulder, initial encounter; D72.829 Elevated white blood cell count, unspecified; K44.9 Diaphragmatic hernia without obstruction or gangrene; E87.6 Hypokalemia; E78.00 Pure hypercholesterolemia, unspecified; R29.6 Repeated falls; W01.0XXA Fall on same level from slipping, tripping and stumbling without subsequent striking against object, initial encounter; I44.0 Atrioventricular block, first degree; I44.4 Left anterior fascicular block; I49.1 Atrial premature depolarization; R00.1 Bradycardia, unspecified; K66.0 Peritoneal adhesions (postprocedural) (postinfection); Z78.1 Physical restraint status; Z87.891 Personal history of nicotine dependence; Z87.442 Personal history of urinary calculi; Z98.84 Bariatric surgery status; Z79.4 Long term (current) use of insulin; Z79.84 Long term (current) use of oral hypoglycemic drugs; I69.322 Dysarthria following cerebral infarction; Z79.899 Other long term (current) drug therapy; Z90.49 Acquired absence of other specified parts of digestive tract; I25.2 Old myocardial infarction; Z91.81 History of falling; Z93.4 Other artificial openings of gastrointestinal tract status; Y93.89 Activity, other specified; Y92.89 Other specified places as the place of occurrence of the external cause; Y99.8 Other external cause status
CPT/HCPCS: 36415; 36573; 70551; 71045; 73030; 73521; 74176; 74230; 76700; 80048; 80061; 80076; 82550; 82962; 83036; 83605; 83735; 83880; 84100; 84484; 85025; 85027; 92610; 92611; 93005; 93306; 93970; 96374; 96375; 97110; 97112; 97162; 97166; 97168; 97530; 99285; A4606; A4615; C1725; C1758; J0360; J0665; J1171; J1815; J2003; J2250; J2270; J2704; J2710; J3010; J3475; J3480; J3490; J7030; J7040; J7042; J7060; J7070; J0131